=== PATIENT | male | born 1955 | race Caucasian/White ===

== ENCOUNTER → 2018-02-03 | Outpatient (CLI) | payer OTHER ==
[~2018-02-03] MED LIST: ENDOCET 5-3251 EACH PO; Lopressor PO; PRINIVIL5 MG PO; Pradaxa PO; SIMVASTATIN20 MG; ZOCOR20 MG PO
== END | disposition home or self-care (01) ==
DX: R26.2 Difficulty in walking, not elsewhere classified (principal); M25.552 Pain in left hip; M25.652 Stiffness of left hip, not elsewhere classified; Z74.1 Need for assistance with personal care; M62.81 Muscle weakness (generalized)
CPT/HCPCS: 97161 GP; 97165 GO; 97530 GP; 97535 GO

== ENCOUNTER 2018-03-01 21:13 | Inpatient (IN) | payer OTHER ==
[~2018-03-01] VITALS: Ht 185.4 cm; Wt 113.3 kg
[~2018-03-01 21:13] MED LIST changes: +LIPITOR80 MG PO; +LOPRESSOR50 MG PO; +MOBIC15 MG PO
[2018-03-02 09:46] VITALS: BP 109/70
[2018-03-02 10:41] VITALS: BP 109/70
[2018-03-02 14:38] LABS: HEMATOCRIT 33.4 % (38.0-50.0); HEMOGLOBIN 11.4 G/DL (12.5-16.6); MCH 30.2 PG (29.0-34.0); MCHC 34.1 G/DL (30.0-36.0); MCV 88.4 FL (86-99); PLATELET COUNT 161 K/uL (156-360); RBC DIS.WIDTH-CV 13.2 % (11.8-14.6); RBC DIS.WIDTH-SD 42.9 % (39-53); RED BLOOD COUNT 3.78 M/uL (4.00-5.50); WHITE BLOOD COUNT 6.2 K/uL (4.1-10.2)
[2018-03-02 15:50] VITALS: BP 124/67
[2018-03-02 20:09] VITALS: BP 136/80
[2018-03-03 00:07] VITALS: BP 114/67
[2018-03-03 04:15] VITALS: BP 109/59
[2018-03-03 06:28] LABS: HEMATOCRIT 35.2 % (38.0-50.0); HEMOGLOBIN 12.1 G/DL (12.5-16.6); MCV 87.1 FL (86-99)
[2018-03-03 06:48] LABS: CHLORIDE 96 MEQ/L (99-109); CREATININE 1.1 MG/DL (0.6-1.3); GFR ESTIMATE (CALCULATED) > 59 mL/min/ (58.99-99999); GLUCOSE 115 mg/dL (70-99); POTASSIUM 4.5 MEQ/L (3.7-5.4); UREA NITROGEN (BUN) 13 mg/dL (9-23)
[2018-03-03 06:51] LABS: SODIUM 131 MEQ/L (136-147)
[2018-03-03 08:00] VITALS: BP 103/60
[2018-03-03] MEDS ORDERED: LOVENOX40 MG/0.4 SC (08:49)
[2018-03-03] MEDS ORDERED: OXYCODONE HCL5 MG PO (08:49)
[2018-03-03 12:24] VITALS: BP 125/64
[2018-03-03 15:55] VITALS: BP 109/57
[2018-03-03 20:21] VITALS: BP 112/58
[2018-03-04] VITALS: BP 155/62
[2018-03-04 04:00] VITALS: BP 116/70
[2018-03-04 08:30] VITALS: BP 131/67
[2018-03-04 11:32] VITALS: BP 107/60
== END 2018-03-04 14:20 | disposition home health service (06) | DRG 470 ==
LOC: ENRESERV 21:13 → 2SOUTH 03-02 09:15 → 3WEST 03-02 09:15 → 2SOUTH 03-02 11:42 → 3WEST 03-02 15:39
PROVIDERS: Orthopaedic Surgery
PROC: 0SRB01A Replacement of Left Hip Joint with Metal Synthetic Substitute, Uncemented, Open Approach (ICD-10-PCS; principal; 2018-03-02)
DX: M16.12 Unilateral primary osteoarthritis, left hip (principal); M87.9 Osteonecrosis, unspecified; I10 Essential (primary) hypertension; E78.00 Pure hypercholesterolemia, unspecified
CPT/HCPCS: 73501; 80048; 85014; 85018; 85027; J0690; J1170; J1650; J2250; J2405; J7030; J7050; S0020